=== PATIENT | female | born 1995 | race Caucasian/White ===

== ENCOUNTER 2017-07-26 20:36 | Emergency (ER) | payer BC, OTHER ==
[2017-07-26] MEDS ORDERED: PROMETHAZINE HCL 25 MG TAB PO ONE (21:04)
[2017-07-26 21:14] VITALS: BP 103/63; TEMP 99.6; O2SAT 95
[2017-07-26] MEDS ORDERED: OSELTAMIVIR 75 MG CAP PO ONE (22:07)
--- NOTE | 2017-07-26 22:10 | ED.PDOC ---
History of Present Illness - General Chief Complaint: Fever Stated Complaint: fever, n/v/d Time Seen by Provider: 07/26/17 20:48 Source: patient Exam Limitations: no limitations - History of Present Illness Initial Comments: the patient is a 22-year-old female presenting to the emergency room at approximately 36 weeks gestational age secondary to nausea and vomiting for the last 18 hours. No blood and no bile. Temperature is mildly elevated. No symptoms ofurinary tract infection. No point abdominal pain. She has been feeling the fetus moving. No loss of fluid. No vaginal bleeding. she has had a mild sore throat and mild body aches. Timing/Duration: 24 hours Severity: mild Improving Factors: nothing Worsening Factors: nothing Associated Symptoms: malaise, nausea/vomiting Allergies/Adverse Reactions: Allergies NO KNOWN ALLERGY Allergy (Verified 07/26/17 21:01) Home Medications: Ambulatory Orders Ondansetron [Zofran Odt] 4 mg PO Q4H PRN #10 tab 07/26/17 Vit W/ Ferrous Fumara [] 1 tab PO 07/26/17 Promethazine HCl [Phenergan] 25 mg OR Q6H PRN #10 sup 07/26/17 Review of Systems - Review of Systems Constitutional: States: malaise EENTM: States: throat pain Respiratory: States: no symptoms reported Cardiology: States: no symptoms reported Gastrointestinal/Abdominal: States: nausea, vomiting Genitourinary: States: no symptoms reported Musculoskeletal: States: no symptoms reported Skin: States: no symptoms reported Neurological: States: no symptoms reported Endocrine: States: no symptoms reported All other Systems: No Change from Baseline Past Medical History (General) - Patient Medical History Hx Diabetes: No - Vaccination History Hx Influenza Vaccination: Yes - Female History Patient is a Female of Child Bearing Age (10 -59 yrs old): Yes Patient : Yes Family Medical History - Family History Father Family History: Unknown Physical Exam - Physical Exam General Appearance: Alert, Comfortable, No apparent distress Eye Exam: bilateral normal Ears, Nose, Throat: hearing grossly normal, pharyngeal erythema Neck: full range of motion, supple Respiratory: lungs clear, normal breath sounds, no respiratory distress, no accessory muscle use Cardiovascular/Chest: normal peripheral pulses, regular rate, rhythm, no edema Peripheral Pulses: radial,right: 2+, radial,left: 2+, dorsalis pedis,right: 2+, dorsalis pedis,left: 2+ Gastrointestinal/Abdominal: non tender - gravid. No point tenderness. No rebound or peritoneal signs., soft Rectal Exam: deferred Back Exam: normal inspection, no CVA tenderness, no vertebral tenderness Extremity: normal range of motion, non-tender, normal inspection, no pedal edema , normal capillary refill Neurologic: teller vault II-XII nml as tested, alert, normal mood/affect, oriented x 3 Skin Exam: normal color Comments: Vital Signs - 24 hr 07/26/17 20:58 Temperature 99.6 F Pulse Rate [ 110 H Right] Respiratory 20 Rate Blood Pressure 103/63 [Left Arm] O2 Sat by Pulse 95 Oximetry Progress - Progress Progress: 07/26/17 22:11 the patient is a 22-year-old female presenting with less than a day of nausea and vomiting. She does have very mild dehydration and does need to increase her fluid intake. She has responded positively to oral Phenergan and will be written for a prescription for this for nausea and vomiting control. She can also take [id number] Pepcid twice daily for the next week. She needs to take Tylenol every 6 hours for the next 24 hours to keep any fever down which may also help with the nausea. She needs to call her supervisor [employer] in the morning and inform them of what was done [facility]. Her urinalysis shows no evidence of infection. She did test negative for streptococcal pharyngitis. Symptoms can be consistent with influenza and due to a regional shortage, we are unable to test her for this. She is being written empirically for a course of Tamiflu. First dose was given here [place]. She needs to try and take this medication with a little bit of food to prevent any nausea. ER warnings were given for any significant worsening. No clinical signs of labor at this time. - Results/Orders Results/Orders: 07/26/17 21:15 STREP A SCREEN CULTURE Stat egative Laboratory Results - last 24 hr 07/26/17 07/26/17 21:15 21:15 Urine Color Yellow Urine Appearance Clear Urine pH 5.5 Ur Specific [place] 1.025 Urine Protein Negative Urine Glucose (UA) Negative Urine Ketones >=160 Urine Blood Negative Urine Nitrite Negative Urine Bilirubin Small H Urine Urobilinogen 0.2 Ur Leukocyte Esterase Trace H Urine RBC 0 Urine WBC 3-5 H Ur Epithelial Cells 5-10 Urine Bacteria 1+ Group A Strep DNA Negative Departure - Departure Clinical Impression: Viral syndrome Disposition: Discharge to Home or Self Care Condition: Fair Departure Forms: ED Discharge - Pt. Copy, Patient Portal Self Enrollment Instructions: DI for Viral Syndrome Diet: bland diet, regular diet Activity: increase activity as tolerated Prescriptions: Ondansetron [Zofran Odt] 4 mg PO Q4H PRN #10 tab PRN Reason: Vomiting Promethazine HCl [Phenergan] 25 mg OR Q6H PRN #10 sup PRN Reason: Nausea/Vomiting Home Medications: Ambulatory Orders Ondansetron [Zofran Odt] 4 mg PO Q4H PRN #10 tab 07/26/17 Vit W/ Ferrous Fumara [] 1 tab PO 07/26/17 Promethazine HCl [Phenergan] 25 mg OR Q6H PRN #10 sup 07/26/17 Additional Instructions: the patient is a 22-year-old female presenting with less than a day of nausea and vomiting. She does have very mild dehydration and does need to increase her fluid intake. She has responded positively to oral Phenergan and will be written for a prescription for this for nausea and vomiting control. She can also take [id number] Pepcid twice daily for the next week. She needs to take Tylenol every 6 hours for the next 24 hours to keep any fever down which may also help with the nausea. She needs to call her supervisor [employer] in the morning and inform them of what was done here tonight. Her urinalysis shows no evidence of infection. She did test negative for streptococcal pharyngitis. Symptoms can be consistent with influenza and due to a regional shortage, we are unable to test her for this. She is being written empirically for a course of Tamiflu. First dose was given here tonight. She needs to try and take this medication with a little bit of food to prevent any nausea. ER warnings were given for any significant worsening. No clinical signs of labor at this time.
== END 2017-07-26 22:26 | disposition home or self-care (01) ==
LOC: ER 20:36
DX: O98.513 Other viral diseases complicating pregnancy, third trimester (principal); Z3A.36 36 weeks gestation of pregnancy
CPT/HCPCS: 81001; 87070; 87651; Q0169